=== PATIENT | female | born 1950 | race African-American/Black ===

== ENCOUNTER 2023-08-12 15:07 | Emergency (ER) | payer MEDICARE, MEDICAID ==
[~2023-08-12] VITALS: Ht 162.6 cm; Wt 127.0 kg
[2023-08-12 15:23] VITALS: TEMP 98.2; O2SAT 98
[2023-08-12] MEDS ORDERED: LACTATED RINGERS 1,000 ML IV SCH (16:30)
[2023-08-12 16:55] LABS: HEMATOCRIT. 36.1 % (36.0-48.0); HEMOGLOBIN. 11.7 g/dL (12.0-16.0); MEAN CORPUSCULAR HEMOGLOBIN 30.1 pg (28.0-32.0); MEAN CORPUSCULAR HGB CONC 32.4 g/dL (31.0-37.0); RED BLOOD CELL COUNT 3.89 mill/uL (4.2-5.4); RED CELL DISTRIBUTION WIDTH 14.3 % (11.6-14.6)
[2023-08-12 16:57] LABS: DIFFERENTIAL COMMENT 1
[2023-08-12 17:11] LABS: ALANINE AMINOTRANSFERASE 11 IU/L (10-49); ALBUMIN 3.8 g/dL (3.2-4.8); ASPARTATE AMINOTRANSFERASE 20 IU/L (<34); BILIRUBIN TOTAL 0.4 mg/dL (0.1-1.0); CALCIUM 9.2 mg/dL (8.7-10.4); CARBON DIOXIDE 27 mEq/L (21-32); CHLORIDE 109 mEq/L (98-107); CREATININE 0.8 mg/dL (0.6-1.0); GLUCOSE 89 mg/dL (70-105); PROTEIN TOTAL 7.5 g/dL (6.0-8.3); SODIUM 143 mEq/L (136-145); UREA NITROGEN BLOOD 19 mg/dL (9-23)
[2023-08-12 17:14] LABS: MEAN PLATELET VOLUME 9.1 fl (7.4-10.4); PLATELET 163 x1000/uL (130-400)
[2023-08-12 17:18] LABS: PLATELET ESTIMATE NORMAL
[2023-08-12 18:15] VITALS: BP 122/49; PULSE 86; RESP 16
[2023-08-12] MEDS ORDERED: CEFEPIME 2,000 MG in DEXT 5% WATER 100 ML IV SCH (18:45)
[2023-08-12] MEDS ORDERED: VANCOMYCIN 1G PREMIX 200 ML IV SCH ×2 (18:45)
== END 2023-08-12 19:56 | disposition left against medical advice (07) ==
LOC: ER 15:07 → EDBD 15:07 → EDBEDREQTM 18:54 → EDBEDREQ 18:54 → ER 19:56
DX: M79.604 Pain in right leg (principal); E11.9 Type 2 diabetes mellitus without complications; E78.00 Pure hypercholesterolemia, unspecified; I10 Essential (primary) hypertension; Z88.0 Allergy status to penicillin
CPT/HCPCS: 36415; 71045; 80053; 83605; 85025; 93005; 93970; 99285; J0692; J7060